=== PATIENT | female | born 1990 | race African-American/Black ===

== ENCOUNTER 2024-04-24 13:32 | Emergency (ER) | payer OTHER ==
[~2024-04-24] VITALS: Ht 165.1 cm; Wt 68.0 kg
[2024-04-24] MEDS ORDERED: IBUP-1490 PO (15:37)
[2024-04-24] MEDS ORDERED: IBUPROFEN 600 MG TABLET ONE (16:01)
[2024-04-24] MEDS: IBUPROFEN 600 MG TABLET PO ONE (16:07)
[2024-04-24 17:39] VITALS: BP 124/88; TEMP 98.5; O2SAT 100
== END 2024-04-24 17:39 | disposition home or self-care (01) ==
LOC: ER 13:38
DX: S13.4XXA Sprain of ligaments of cervical spine, initial encounter (principal); R42 Dizziness and giddiness; R51.9 Headache, unspecified; V43.52XA Car driver injured in collision with other type car in traffic accident, initial encounter; Y93.89 Activity, other specified; Y92.488 Other paved roadways as the place of occurrence of the external cause; Y99.8 Other external cause status